=== PATIENT | female | born 1940 | race Caucasian/White ===

== ENCOUNTER 2020-08-02 13:42 | Outpatient (CLI) | payer MEDICARE, SELFPAY ==
--- NOTE | ~2020-08-02 | DEXA_ITS ---
Bone Density Report Name: Precious Navarrete Age: 79 Sex: Female Ethnicity: White Date of : 1940 Indication: osteopenia; Referring Provider: Hussein Barnes Study: Bone densitometry was performed. Exam Date: August 02, 2020 Accession number: [id number] Bone Density: Region BMD T-score Z-score Classification AP Spine (L1-L4) 0.859 -1.7 1.0 Osteopenia Femoral Neck (Left) 0.633 -1.9 0.3 Osteopenia Total Hip (Left) 0.745 -1.6 0.4 Osteopenia Total Hip Bilateral Avg 0.764 -1.5 0.6 Osteopenia Femoral Neck (Right) 0.657 -1.7 0.6 Osteopenia Total Hip (Right) 0.782 -1.3 0.7 Osteopenia World Health Organization criteria for BMD impression classify patients as: Normal (T-score at or above -1.0), Osteopenia (T-score between -1.0 and -2.5), or Osteoporosis (T-score at or below -2.5). 10-year Fracture Risk(1): Major Osteoporotic Fracture 16% Hip Fracture 4.4% Reported Risk Factors: [place] (), Neck BMD=0.633, BMI=25.5 (1) FRAX(R) Version 3.08. Fracture probability calculated for an untreated patient. Fracture probability may be lower if the patient has received treatment. Previous Exams: Region Exam Age BMD T-score BMD Change BMD Change Date g/cm2 vs Baseline vs Previous AP Spine(L1-L4) 08/02/2020 79 0.859 -1.7 -0.065(-7.0%)# -0.011(-1.3%)# 09/11/2013 72 0.870 -1.6 -0.054(-5.8%)# -0.030(-3.4%)# 10/05/2010 69 0.901 -1.3 -0.023(-2.5%)* -0.010(-1.1%) 09/28/2008 67 0.911 -1.2 -0.013(-1.5%) -0.013(-1.5%) 06/07/2004 63 0.924 -1.1 Total Hip(Left) 08/02/2020 79 0.745 -1.6 -0.076(-9.2%)# -0.124(-14.3%) 09/11/2013 72 0.869 -0.6 0.048(5.9%)# 0.037(4.4%)# 10/05/2010 69 0.832 -0.9 0.011(1.4%) 0.012(1.5%) 09/28/2008 67 0.820 -1.0 -0.001(-0.1%) -0.001(-0.1%) 06/07/2004 63 0.821 -1.0 Total Hip(Right) 08/02/2020 79 0.782 -1.3 -0.031(-3.8%)# -0.097(-11.0%) 09/11/2013 72 0.879 -0.5 0.065(8.0%)# 0.049(5.9%)# 10/05/2010 69 0.830 -0.9 0.016(2.0%) -0.001(-0.1%) 09/28/2008 67 0.831 -0.9 0.017(2.1%) 0.017(2.1%) 06/07/2004 63 0.813 -1.1 *Denotes significance at 95% confidence level, LSC for AP Spine = 0.022 g/cm2, LSC for Total Hip = 0.027 g/cm2 Impression: The patient has low bone mass, based on the Left Femoral Neck T-score. The patient has an estimated ten-year risk of hip fracture of 4.4% and an estimated ten-year risk of major fracture of 16%, based on the WHO FRAX algorithm. No significant bone loss was observed. Discussion: BONE DENSITY IS LOW AT O
== END 2020-08-02 13:43 | disposition home or self-care (01) ==
LOC: ANHIMG 13:45
PROVIDERS: PCP Family Medicine; Visit Provider Family Medicine
DX: Z78.0 Asymptomatic menopausal state (principal); M85.88 Other specified disorders of bone density and structure, other site; M85.852 Other specified disorders of bone density and structure, left thigh; M85.851 Other specified disorders of bone density and structure, right thigh
CPT/HCPCS: 77080

== ENCOUNTER 2020-09-03 09:28 | Outpatient (CLI) | payer MEDICARE, SELFPAY ==
--- NOTE | ~2020-09-03 | MM_ITS ---
EXAMINATION: MM screening [facility] BI w win HISTORY: Screening mammogram, family history of breast cancer in her daughter. TECHNIQUE: Craniocaudal and mediolateral oblique 3-D tomosynthesis images were obtained and synthetic 2-D images were generated. CAD analysis was submitted and interpreted. COMPARISON: 08/12/2019, 08/09/2018, 08/03/2017 BREAST PARENCHYMAL COMPOSITION: The breasts are heterogeneously dense, which may obscure small masses . FINDINGS: There is no evidence of suspicious mass, calcification, or architectural distortion to sugg est malignancy in either breast. There has been no suspicious interval change. IMPRESSION: 1. No mammographic evidence of malignancy. 2. Recommend routine screening mammography in one year. BI-RADS Category 1: Negative Reviewed, dictated and finalized at location A. [place] WORKER
== END 2020-09-03 09:29 | disposition home or self-care (01) ==
LOC: ANHIMG 09:31
PROVIDERS: PCP Family Medicine; Visit Provider Family Medicine
DX: Z12.31 Encounter for screening mammogram for malignant neoplasm of breast (principal)
CPT/HCPCS: 77063; 77067

== ENCOUNTER → 2021-05-27 02:58 | Outpatient (CLI) | payer MEDICARE, SELFPAY ==
[2021-05-27 18:35] LABS: SARS-CoV-2 RNA PCR Positive
== END ==
PROVIDERS: PCP Family Medicine; Visit Provider Family Medicine
DX: U07.1 COVID-19 (principal)
CPT/HCPCS: C9803; U0003; U0005

== ENCOUNTER 2021-11-01 10:13 | Outpatient (CLI) | payer MEDICARE, SELFPAY ==
--- NOTE | ~2021-11-01 | MM_ITS ---
EXAMINATION: MM screening [facility] BI w win HISTORY: Screening TECHNIQUE: Craniocaudal and mediolateral oblique 3-D tomosynthesis images were obtained and synthetic 2-D images were generated. CAD analysis was submitted and interpreted. COMPARISON: Comparison to multiple prior studies sequentially, with oldest reviewed study dated 06/27. BREAST PARENCHYMAL COMPOSITION: The breasts are heterogenously dense, which may obscure small masses FINDINGS: There is no evidence of suspicious mass, calcification, or architectural distortion to sugg est malignancy in either breast. There has been no suspicious interval change. IMPRESSION: 1. No mammographic evidence of malignancy. 2. Recommend routine screening mammography in one year. BI-RADS Category 1: Negative Reviewed, dictated and finalized at location A. 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
== END 2021-11-01 10:14 | disposition home or self-care (01) ==
LOC: ANHIMG 10:14
PROVIDERS: PCP Family Medicine; Visit Provider Family Medicine
DX: Z12.31 Encounter for screening mammogram for malignant neoplasm of breast (principal)
CPT/HCPCS: 77063; 77067

== ENCOUNTER 2021-12-20 00:37 | Day surgery (SDC) | payer MEDICARE, SELFPAY ==
[2021-12-02 15:03] VITALS: BMI 24.7
[2021-12-20 07:42] VITALS: BP 151/67; PULSE 73; RESP 16; TEMP 35.8; O2SAT 100; BMI 25.0
[2021-12-20] MEDS: LACTATED RINGERS 1,000 ML 150 ML IV CONT (07:55)
--- NOTE | 2021-12-20 08:25 | WPDGICN ---
Assessment and Plan Assessment and plan (1) History of colon polyps: Code(s): Z86.010 - Personal history of colonic polyps Status: Acute Assessment and Plan: Patient has a history of recurrent colon polyps. Most recent colonoscopy was 5 years ago. Patient presents today for or screening follow-up colonoscopy. GI Consult Note Consult date/time: 12/20/21 08:25 HPI: Precious Navarrete is a 81 year old female Presents for screening colonoscopy. Patient has a history of colon polyps in the past. She presents today for screening colonoscopy. Current weight appetite bowel movements are normal. She denies abdominal pain. She has had no bleeding. Patient has a history of recurrent C diff infection in the fall of 2020. Has been 3 or 4 months since last diarrhea episode. She denies any bleeding or abdominal pain. Family history is noncontributory. Review of Systems Review of Systems: All systems reviewed & are unremarkable except as noted in HPI and below PMFSH Past Medical History Medical History Chronic low back pain without sciatica Dyslipidemia Hyperlipidemia Prediabetes Seasonal allergies Surgical History Surgical History H/O removal of cyst 2007 - left breast H/O: hysterectomy 1988 History of lumpectomy of left breast 1961 History of tonsillectomy Family History Family History Daughter Breast cancer Sibling Malignant neoplasm of prostate Mother Afib Social History Social History Smoking status: Former smoker Tobacco type: cigarettes Additional smoking assessment comments: social smoker 40 years ago Alcohol intake: current Alcohol use details: occasional glass of wine Substance use: never Substance use type: does not use Living arrangements: with family Additional living arrangements comments: Gender identity (if verbalized by the patient): Female Sexual Orientation (if Verbalized by the Patient): Straight or Heterosexual Spiritual care concerns: No Meds Home Medications and Allergies Home Medications Medication Instructions Recorded Confirmed Type fluticasone propionate 50 2 spray INTRANASAL DAILY 06/21/20 12/02/21 History mcg/actuation nasal spray,suspension simvastatin 20 mg tablet 20 mg PO QHS #90 tablet 05/25/21 12/02/21 Rx calcium carbonate 600 mg-vitamin 1 cap PO DAILY cap 06/23/21 12/02/21 History D3 12.5 mcg (500 unit) capsule Allergies Allergy/AdvReac Type Severity Reaction Status Date / Time Penicillins Allergy Unknown Unknown Verified 12/20/21 07:42 Vital Signs Vital Signs - 24 hr 12/20/21 07:42 Temperature 96.4 F L Pulse Rate 73 Respiratory Rate 16 Blood Pressure 151/67 H Pulse Oximetry 100 Exam Narrative: Physical exam reveals patient to be alert. Vital signs stable. HEENT exam is unremarkable. Patient is anicteric. Lungs are clear to auscultation and percussion. Heart is without murmur or extra sounds. Abdominal exam bowel sounds are present soft nontender with no organomegaly. Digital external rectal exam is normal.
--- NOTE | 2021-12-20 08:27 | WPDANESEPPF ---
Anes - Initial Pre Proc Eval Procedure: Operation Date: 12/20/21 09:00 Proposed Procedures p Screening Colonoscopy - Twan Martínez MD Date/Time: 12/20/21 08:27 Surgeon: Twan Martínez MD Pre Op Diagnosis: hx of colon polyps Patient Data Age: 81 Gender: F Height: 1.57 m Weight: 62.1 kg Last Vital Signs Temp 96.4 F L 12/20/21 07:42 Pulse 73 12/20/21 07:42 Resp 16 12/20/21 07:42 BP 151/67 H 12/20/21 07:42 Pulse Ox 100 12/20/21 07:42 Allergies Allergy/AdvReac Type Severity Reaction Status Date / Time Penicillins Allergy Unknown Unknown Verified 12/20/21 07:42 Home Medications Medication Instructions Recorded Confirmed Type fluticasone propionate 50 2 spray INTRANASAL DAILY 06/21/20 12/02/21 History mcg/actuation nasal spray,suspension simvastatin 20 mg tablet 20 mg PO QHS #90 tablet 05/25/21 12/02/21 Rx calcium carbonate 600 mg-vitamin 1 cap PO DAILY cap 06/23/21 12/02/21 History D3 12.5 mcg (500 unit) capsule Patient hx anesthesia problems: none Family hx anesthesia problems: none Results Review: All pre-operative results and documents have been reviewed as part of the pre-operative evaluation. [facility] Past Medical History Medical History Chronic low back pain without sciatica Dyslipidemia Hyperlipidemia Prediabetes Seasonal allergies Surgical History Surgical History H/O removal of cyst 2007 - left breast H/O: hysterectomy 1988 History of lumpectomy of left breast 1961 History of tonsillectomy Family History Family History Daughter Breast cancer Sibling Malignant neoplasm of prostate Mother Afib Social History Social History Smoking status: Former smoker Tobacco type: cigarettes Additional smoking assessment comments: social smoker 40 years ago Alcohol intake: current Alcohol use details: occasional glass of wine Substance use: never Substance use type: does not use Living arrangements: with family Additional living arrangements comments: Gender identity (if verbalized by the patient): Female Sexual Orientation (if Verbalized by the Patient): Straight or Heterosexual Spiritual care concerns: No Anes - Eval Final PreProcedure Day of Procedure 12/20/21 08:27 Patient weight: normal Heart: regular rate and rhythm Lungs: clear to auscultation Airway: Mallampati scale class II Neurological: alert and oriented Last oral intake: >/= 8 hours ASA classification: II Emergent: no Anesthetic plan: proceed Anesthesia type and monitoring: general GIVS and standard monitoring Results Review: All pre-operative results and documents have been reviewed as part of the pre-operative evaluation. Informed Consent: The patient's anesthetic plan and its attendant risks and benefits were discussed with the patient/family/POA. Questions were solicited and answers provided to the satisfaction of the patient/family/POA.
[2021-12-20 09:30] VITALS: BP 108/51; PULSE 72; RESP 20; O2SAT 96
[2021-12-20 09:40] VITALS: BP 136/75; PULSE 63; RESP 21; O2SAT 100
[2021-12-20 09:50] VITALS: BP 141/75; PULSE 69; RESP 19; O2SAT 98
== END 2021-12-20 10:03 | disposition home or self-care (01) ==
PROVIDERS: PCP Family Medicine; Visit Provider Internal Medicine Gastroenterology
PROC: 0DJD8ZZ Inspection of Lower Intestinal Tract, Via Natural or Artificial Opening Endoscopic (ICD-10-PCS; CPT 45378; principal; 2021-12-20 09:00)
DX: Z12.11 Encounter for screening for malignant neoplasm of colon (principal); D12.2 Benign neoplasm of ascending colon; D12.5 Benign neoplasm of sigmoid colon; K63.5 Polyp of colon; K64.8 Other hemorrhoids; E78.5 Hyperlipidemia, unspecified; R73.03 Prediabetes; Z87.891 Personal history of nicotine dependence
CPT/HCPCS: 45380; 88305; J2704; J7120

== ENCOUNTER → 2022-05-09 14:46 | Outpatient (CLI) | payer MEDICARE, SELFPAY ==
--- NOTE | ~2022-05-09 | XR_ITS ---
EXAM: XR knee LT 2V DATE: 05/09/2022 15:01 HISTORY: M25.562 - Pain in left knee . COMPARISON: None available. FINDINGS: Decreased mineralization. No fracture or dislocation. No lytic or blastic lesion. Quadrice ps enthesopathy. Severe medial joint space narrowing. Mild tricompartmental osteophytosis. No erosion or periosteal change. Soft tissues within normal limits. IMPRESSION: Tricompartmental left knee osteoarthritis, severe in the medial compartment. Reviewed, dictated and finalized at location K. IMPRESSION: Tricompartmental left knee osteoarthritis, severe in the medial com partment.
== END ==
PROVIDERS: PCP Nurse Practitioner Family; Visit Provider Nurse Practitioner Family
DX: M17.12 Unilateral primary osteoarthritis, left knee (principal)
CPT/HCPCS: 73560

== ENCOUNTER 2022-11-13 09:13 | Outpatient (CLI) | payer MEDICARE, SELFPAY ==
--- NOTE | ~2022-11-13 | MM_ITS ---
EXAMINATION: MM screening [facility] BI w win HISTORY: Screening TECHNIQUE: Craniocaudal and mediolateral oblique 3-D tomosynthesis images were obtained and synthetic 2-D images were generated. CAD analysis was submitted and interpreted. COMPARISON: Comparison to multiple prior studies sequentially, with oldest reviewed study dated 01/2016. BREAST PARENCHYMAL COMPOSITION: There are scattered areas of fibroglandular density. FINDINGS: There is no evidence of suspicious mass, calcification, or architectural distortion to sugg est malignancy in either breast. There has been no suspicious interval change. IMPRESSION: 1. No mammographic evidence of malignancy. 2. Recommend routine screening mammography in one year. BI-RADS Category 1: Negative Reviewed, dictated and finalized at location A.
== END 2022-11-13 09:14 | disposition home or self-care (01) ==
LOC: ANHIMG 09:14
PROVIDERS: PCP Family Medicine; Visit Provider Family Medicine
DX: Z12.31 Encounter for screening mammogram for malignant neoplasm of breast (principal)
CPT/HCPCS: 77063; 77067

== ENCOUNTER 2022-12-26 11:15 | Outpatient (CLI) | payer MEDICARE, SELFPAY ==
[2022-12-26 19:36] LABS: Alanine Aminotransferase 24 U/L (6-35); Albumin Level 4.5 g/dL (3.5-5.1); Alkaline Phosphatase 59 U/L (38-126); Anion Gap 2 mmol/L (8-16); Aspartate Amino Transferase 36 U/L (14-36); Bilirubin,Total 0.5 mg/dL (0.2-1.3); Blood Urea Nitrogen 14 mg/dL (7-17); Calcium 9.7 mg/dL (8.4-10.2); Carbon Dioxide 33 mmol/L (22-30); Chloride 103 mmol/L (98-107); Estimated Glomerular Filt Rate > 60; Glucose 100 mg/dL (65-110); Potassium 5.5 mmol/L (3.4-5.0); Sodium 138 mmol/L (137-145)
[2022-12-26 20:09] LABS: Hemoglobin A1C 6.3 % (<5.7)
== END 2022-12-26 11:16 | disposition home or self-care (01) ==
LOC: ANHGOSHLAB 11:16
PROVIDERS: PCP Family Medicine; Visit Provider Family Medicine
DX: R73.03 Prediabetes (principal); E78.5 Hyperlipidemia, unspecified; Z79.899 Other long term (current) drug therapy
CPT/HCPCS: 36415; 80053; 83036

== ENCOUNTER 2023-01-11 09:21 | Outpatient (CLI) | payer MEDICARE, SELFPAY ==
[2023-01-11 19:17] LABS: Anion Gap 6 mmol/L (8-16); Blood Urea Nitrogen 16 mg/dL (7-17); Calcium 9.1 mg/dL (8.4-10.2); Carbon Dioxide 32 mmol/L (22-30); Chloride 103 mmol/L (98-107); Estimated Glomerular Filt Rate > 60; Glucose 91 mg/dL (65-110); Potassium 4.9 mmol/L (3.4-5.0); Sodium 141 mmol/L (137-145)
== END 2023-01-11 09:22 | disposition home or self-care (01) ==
LOC: ANHGOSHLAB 09:21
PROVIDERS: PCP Family Medicine; Visit Provider Family Medicine
DX: E87.5 Hyperkalemia (principal)
CPT/HCPCS: 36415; 80048

== ENCOUNTER 2023-06-28 10:16 | Outpatient (CLI) | payer MEDICARE, SELFPAY ==
[2023-06-28 12:42] LABS: Basophils Absolute Auto 0.1 K/mm3 (0.0-0.1); Eosinophils Absolute Auto 0.1 K/mm3 (0-0.3); Eosinophils Percent Auto 1.6 % (0-4.4); Hematocrit 43.9 % (37.0-47.0); Hemoglobin 13.9 g/dL (12.0-15.0); Immature Granulocyte Absolute 0.01 K/mm3 (0.00-0.031); Immature Granulocyte Percent A 0.1 % (0-0.5); Lymphocytes Absolute Auto 2.21 K/mm3 (0.9-3.2); Lymphocytes Percent Auto 32.5 % (18.3-44.2); Mean Corpuscular HGB Conc 31.7 g/dl (32-36); Mean Corpuscular Hemoglobin 29.6 pg (26-34); Mean Corpuscular Volume 93.4 fl (80-100); Mean Platelet Volume 10.6 fl (7.4-10.4); Monocytes Absolute Auto 0.4 K/mm3 (0.1-0.6); Monocytes Percent Auto 6.2 % (2.6-8.5); Neutrophils Percent Auto 58.6 % (45.5-73.1); Platelet Count Result 245 k/mm3 (150-375); Red Cell Distribution Width 12.7 % (11.5-14.5); White Blood Count 6.8 K/mm3 (4.5-10.0)
[2023-06-28 13:36] LABS: Alanine Aminotransferase 21 U/L (6-35); Albumin Level 4.6 g/dL (3.5-5.1); Alkaline Phosphatase 61 U/L (38-126); Anion Gap 5 mmol/L (8-16); Aspartate Amino Transferase 45 U/L (14-36); Bilirubin,Total 0.7 mg/dL (0.2-1.3); Blood Urea Nitrogen 19 mg/dL (7-17); Calcium 9.5 mg/dL (8.4-10.2); Carbon Dioxide 32 mmol/L (22-30); Chloride 102 mmol/L (98-107); Cholesterol 201 mg/dL (0-200); Estimated Glomerular Filt Rate > 60; Glucose 116 mg/dL (65-110); HDL Direct 59 mg/dL; Potassium 5.1 mmol/L (3.4-5.0); Sodium 139 mmol/L (137-145); Triglycerides 178 mg/dL (<150)
[2023-06-28 13:47] LABS: LDL Cholesterol Direct 99 mg/dL
[2023-06-28 19:32] LABS: Vitamin D 25 Hydroxy 45.1 ng/mL
== END 2023-06-28 10:17 | disposition home or self-care (01) ==
LOC: ANHGOSHLAB 10:17
PROVIDERS: PCP Family Medicine; Visit Provider Family Medicine
DX: E78.5 Hyperlipidemia, unspecified (principal); R73.03 Prediabetes; Z79.899 Other long term (current) drug therapy; Z00.00 Encounter for general adult medical examination without abnormal findings; E53.8 Deficiency of other specified B group vitamins; E55.9 Vitamin D deficiency, unspecified; Z13.29 Encounter for screening for other suspected endocrine disorder
CPT/HCPCS: 36415; 80053; 80061; 82306; 82607; 83036; 84443; 85025

== ENCOUNTER 2023-08-16 08:50 | Outpatient (CLI) | payer MEDICARE, SELFPAY ==
--- NOTE | ~2023-08-16 | DEXA_ITS ---
Bone Density Report Name: MICHELLE MONTANO Age: 82 Sex: Female Ethnicity: White Date of : 1940 Indication: osteopenia; monitoring treatment; height loss; hysterectomy; Referring Provider: DONOVAN WOOD Study: Bone densitometry was performed. Exam Date: August 16, 2023 Accession number: [id number] Bone Density: Region BMD T-score Z-score Classification AP Spine(L1-L4) 0.833 -1.9 0.8 Osteopenia Femoral Neck (Left) 0.628 -2.0 0.4 Osteopenia Total Hip (Left) 0.761 -1.5 0.7 Osteopenia Femoral Neck (Right) 0.627 -2.0 0.4 Osteopenia Total Hip (Right) 0.764 -1.5 0.8 Osteopenia Total Hip Mean 0.763 -1.5 0.8 Osteopenia World Health Organization criteria for BMD impression classify patients as: Normal (T-score at or above -1.0), Osteopenia (T-score between -1.0 and -2.5), or Osteoporosis (T-score at or below -2.5). 10-year Fracture Risk: FRAX not reported because: Treated for osteoporosis Previous Exams: Region Exam Age BMD T-score BMD Change BMD Change Date g/cm2 vs Baseline vs Previous AP Spine (L1-L4) 08/16/2023 82 0.833 -1.9 -0.027 (-3.1%) -0.027 (-3.1%) 08/02/2020 79 0.859 -1.7 Total Hip(Left) 08/16/2023 82 0.761 -1.5 0.016 (2.1%) 0.016 (2.1%) 08/02/2020 79 0.745 -1.6 Total Hip(Right) 08/16/2023 82 0.764 -1.5 -0.018 (-2.3%) -0.018 (-2.3%) 08/02/2020 79 0.782 -1.3 *Denotes significance at 95% confidence level, LSC for AP Spine = 0.022 g/cm2, LSC for Total Hip = 0.027 g/cm2 Clinical Information Provided by Patient: Is being treated for osteoporosis Has used the following medications: Vitamin D, Calcium Has the following medical conditions: Hysterectomy Patient maximum height was 63 Menopause Age: 48 Does not regularly consume dairy products Drinks caffeinated beverages Onset of menses at age 11 Number of children 2 Impression: The patient has low bone mass, based on the Left Femoral Neck T-score. The BMD for the AP Spine (L1-L4) decreased, changing by -3.1% since the last DXA exam. Discussion: SIGNIFICANT BONE LOSS OBSERVED. Adherence to therapy (including calcium and vitamin D intake) should be assessed. If compliance is not a factor, review management and exclusion of secondary causes of bone loss. It is important to ask patients whether they are taking their medications and to encourage continued and appropriate compliance with their osteoporosis therapies to reduce fracture risk. It is also impor
== END 2023-08-16 08:51 | disposition home or self-care (01) ==
PROVIDERS: PCP Family Medicine; Visit Provider Family Medicine
DX: Z78.0 Asymptomatic menopausal state (principal); M85.88 Other specified disorders of bone density and structure, other site; M85.852 Other specified disorders of bone density and structure, left thigh; M85.851 Other specified disorders of bone density and structure, right thigh
CPT/HCPCS: 77080

== ENCOUNTER 2023-11-23 09:59 | Outpatient (CLI) | payer MEDICARE, SELFPAY ==
--- NOTE | ~2023-11-23 | MM_ITS ---
EXAMINATION: MM screening [facility] BI w win HISTORY: Screening mammogram TECHNIQUE: Craniocaudal and mediolateral oblique 3-D tomosynthesis images were obtained and synthetic 2-D images were generated. CAD analysis was submitted and interpreted. COMPARISON: 11/13/2022, 11/01/2021 bilateral screening mammogram examinations BREAST PARENCHYMAL COMPOSITION: There are scattered areas of fibroglandular density. FINDINGS: Biopsy marker on the left; history of prior bilateral benign breast biopsies. There is no e vidence of suspicious mass, calcification, or architectural distortion to suggest malignancy in eithe r breast. There has been no suspicious interval change. IMPRESSION: 1. No mammographic evidence of malignancy. 2. Recommend routine screening mammography in one year. BI-RADS Category 1: Negative Reviewed, dictated and finalized at location A.
== END 2023-11-23 10:00 | disposition home or self-care (01) ==
LOC: ANHIMG 10:02
PROVIDERS: PCP Family Medicine; Visit Provider Family Medicine
DX: Z12.31 Encounter for screening mammogram for malignant neoplasm of breast (principal)
CPT/HCPCS: 77063; 77067

== ENCOUNTER 2024-01-01 08:47 | Outpatient (CLI) | payer MEDICARE, SELFPAY ==
[2024-01-01 14:00] LABS: Basophils Absolute Auto 0.1 K/mm3 (0.0-0.1); Basophils Percent Auto 1.1 % (0.2-1.2); Eosinophils Absolute Auto 0.1 K/mm3 (0-0.3); Eosinophils Percent Auto 1.6 % (0-4.4); Hematocrit 44.6 % (37.0-47.0); Hemoglobin 13.8 g/dL (12.0-15.0); Immature Granulocyte Absolute 0.01 K/mm3 (0.00-0.031); Immature Granulocyte Percent A 0.2 % (0-0.5); Lymphocytes Absolute Auto 1.98 K/mm3 (0.9-3.2); Lymphocytes Percent Auto 30.7 % (18.3-44.2); Mean Corpuscular HGB Conc 30.9 g/dl (32-36); Mean Corpuscular Hemoglobin 28.6 pg (26-34); Mean Corpuscular Volume 92.5 fl (80-100); Mean Platelet Volume 10.9 fl (7.4-10.4); Monocytes Absolute Auto 0.5 K/mm3 (0.1-0.6); Monocytes Percent Auto 7.9 % (2.6-8.5); Neutrophils Absolute Auto 3.8 K/mm3 (1.3-6.7); Neutrophils Percent Auto 58.5 % (45.5-73.1); Platelet Count Result 252 k/mm3 (150-375); Red Blood Count 4.82 M/mm3 (4.2-5.4); Red Cell Distribution Width 13.8 % (11.5-14.5); White Blood Count 6.5 K/mm3 (4.5-10.0)
[2024-01-01 14:12] LABS: Alanine Aminotransferase 21 U/L (6-35); Albumin Level 4.5 g/dL (3.5-5.1); Alkaline Phosphatase 59 U/L (38-126); Anion Gap 5 mmol/L (4-12); Aspartate Amino Transferase 37 U/L (14-36); Bilirubin,Total 0.6 mg/dL (0.2-1.3); Blood Urea Nitrogen 16 mg/dL (7-17); Calcium 9.3 mg/dL (8.4-10.2); Carbon Dioxide 30 mmol/L (22-30); Chloride 105 mmol/L (98-107); Cholesterol 168 mg/dL (0-200); Estimated Glomerular Filt Rate > 60; Glucose 103 mg/dL (65-110); HDL Direct 51 mg/dL; Potassium 4.4 mmol/L (3.4-5.0); Sodium 140 mmol/L (137-145); Triglycerides 161 mg/dL (<150)
[2024-01-01 14:23] LABS: LDL Cholesterol Direct 99 mg/dL
[2024-01-01 16:01] LABS: Hemoglobin A1C 6.1 % (<5.7)
== END 2024-01-01 08:48 | disposition home or self-care (01) ==
LOC: ANHGOSHLAB 08:48
PROVIDERS: PCP Family Medicine; Visit Provider Nurse Practitioner Family
DX: E78.5 Hyperlipidemia, unspecified (principal); E87.5 Hyperkalemia; M19.90 Unspecified osteoarthritis, unspecified site; M85.80 Other specified disorders of bone density and structure, unspecified site; R73.03 Prediabetes; E04.1 Nontoxic single thyroid nodule
CPT/HCPCS: 36415; 80053; 80061; 83036; 84443; 85025

== ENCOUNTER 2024-02-27 13:25 | Emergency (ER) | payer MEDICARE, SELFPAY ==
--- NOTE | 2024-02-27 13:32 | ED.DIZZY ---
HPI - Dizziness General Chief Complaint: Dizziness Stated Complaint: Dizziness Time Seen by Provider: 02/27/24 13:35 Source: patient Mode of arrival: ambulatory Limitations: no limitations History of Present Illness HPI Narrative: Precious is an 83-year-old female patient presenting to the clinic today with complaints of dizziness for the past 4-5 days. She reports that she feels off balance and as though the room is spinning. States she feels as though her head is congested. Has been taking Flonase and [id number] antihistamines without relief. She denies any chest pain, shortness of breath, visual changes, or headache. She denies any cough or nasal congestion. States she does have a little bit of a scratchy throat. Related Data Home Medications Medication Instructions Recorded Confirmed calcium carbonate 600 mg-vitamin 1 cap PO DAILY 06/23/21 02/27/24 D3 12.5 mcg (500 unit) capsule (Calcium 600 with Vitamin D3) cholecalciferol (vitamin D3) 25 25 mcg PO DAILY 05/09/22 02/27/24 mcg (1,000 unit) tablet meloxicam 15 mg tablet 15 mg PO DIRECTED 06/28/23 02/27/24 Allergies Allergy/AdvReac Type Severity Reaction Status Date / Time Penicillins Allergy Unknown Unknown Verified 02/27/24 13:39 clindamycin AdvReac Severe c. diff Verified 02/27/24 13:39 Review of Systems Review of Systems: Pertinent positives per HPI. Patient denies any fever, chills, rash, headache, visual changes, cough, runny nose, shortness of breath, chest pain, palpitations, nausea, vomiting, diarrhea, constipation, abdominal pain, or any urinary issues. [facility] Past Medical History Medical History Chronic low back pain without sciatica Degenerative joint disease of knee Dyslipidemia History of colon polyps Left medial knee pain Lip lesion Osteopenia Prediabetes Recurrent Clostridioides difficile infection (~2020) Seasonal allergies Sinusitis, acute Surgical History Surgical History H/O removal of cyst (~2007) 2007 - left breast H/O: hysterectomy (~1988) 1988 History of lumpectomy of left breast (~1961) 1961 History of tonsillectomy (~1962) Family History Family History Daughter Breast cancer Sibling Malignant neoplasm of prostate Mother Afib Other Arthritis Social History Social History Smoking status: Former smoker (< 20 pack years) Tobacco type: cigarettes Additional smoking assessment comments: social smoker 40 years ago Alcohol intake: current Alcohol use details: occasional glass of wine Substance use: never Substance use type: does not use Lack of Transportation: No Lack of Food: Never True Current Housing: I Have Housing Concerned About Future Housing: No Difficulty Paying Gas/Electric Bills: No Difficulty Paying for Meds: No Currently Unemployed: No Education: High School Diploma/GED Difficulty w/ Childcare or Family Care: No Living arrangements: with family Additional living arrangements comments: Occupation/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der identity (if verbalized by the patient): Female Sexual Orientation (if Verbalized by the Patient): Straight or Heterosexual Spiritual care concerns: No Agree to blood products: Yes Comments At the time of my signature, I reviewed and agree with the nursing past medical, surgical, social, and family history. There is no relevant family history pertinent to the patient complaint. Exam Narrative: General: Well-developed, well nourished, in no apparent distress Head: Normocephalic, atraumatic Eyes: Pupils equally round and reactive to light bilaterally, EOM intact, sclera and conjunctive clear, no discharge, lids normal Ears: TMs intact and clear, mild congestion behind TMs, scant amount of cerumen in
[2024-02-27 13:38] VITALS: BP 160/99; PULSE 76; RESP 16; TEMP 36.6; O2SAT 100
--- NOTE | 2024-02-27 13:40 | ECG_ITS ---
Test Date: 2024-02-27 14:03:30 Measurements Intervals Joseph Rate: 70 P: 54 CA: 162 QRS: -54 QRSD: 91 T: 37 QT: 397 QTc: 430 Interpretive Statements SINUS RHYTHM POSSIBLE LEFT ATRIAL ENLARGEMENT INCOMPLETE RIGHT BUNDLE BRANCH BLOCK LEFT ANTERIOR FASCICULAR BLOCK POSSIBLE LEFT VENTRICULAR HYPERTROPHY ABNORMAL ECG No previous ECG available for comparison Electronically Signed On 02-27-2024 15:01:19 CDT by Farhan Chandler D.O.
[2024-02-27 13:41] VITALS: BP 160/99; PULSE 76; RESP 16; TEMP 36.6; O2SAT 100
[2024-02-27 13:56] LABS: Glucose Point of Care 87 mg/dl (65-105)
[2024-02-27 14:00] LABS: EDUAAPPEAR Cloudy; EDUABILI Negative; EDUABLOOD 2+; EDUACOLOR1 Yellow; EDUAGLUCOSE Negative; EDUAKETONE Negative; EDUALEUKO Negative; EDUANITRATE Negative; EDUAPROTEIN Negative; EDUASPGRAVITY 1.015; EDUAUROBILI 0.2
[2024-02-27 14:06] VITALS: BP 166/78; PULSE 87
[2024-02-27 14:07] VITALS: BP 147/83; BP 151/91; PULSE 76; PULSE 83
[2024-02-27 14:09] LABS: EDINFLUASCREEN Negative; EDINFLUBSCREEN Negative
== END 2024-02-27 14:21 | disposition home or self-care (01) ==
PROVIDERS: Emergency Provider Nurse Practitioner Family; PCP Family Medicine
DX: R42 Dizziness and giddiness (principal); H61.21 Impacted cerumen, right ear; R73.03 Prediabetes; E78.5 Hyperlipidemia, unspecified; M85.80 Other specified disorders of bone density and structure, unspecified site; Z87.891 Personal history of nicotine dependence
CPT/HCPCS: 69210; 81003; 82948; 87086; 87426; 87804; 93005; 99213; G0463

== ENCOUNTER 2024-05-12 11:45 | Emergency (ER) | payer MEDICARE, SELFPAY ==
--- NOTE | ~2024-05-12 | XR_ITS ---
EXAMINATION: XR wrist LT min 3V DATE: 05/12/2024 12:15 INDICATION: Left wrist pain and swelling. TECHNIQUE: 3 views of left wrist were obtained. COMPARISON: None. FINDINGS: There is a comminuted fracture of distal radius with involvement of the distal articular cardenas rface. The main distal fracture fragment demonstrates impaction and dorsal angulation. There is 3 deg james dorsal tilt of the distal articular surface. There is a comminuted fracture of the ulnar styloid . There is severe osteoarthritis of radioscaphoid joint, moderate osteoarthritis of triscaphe joint, and severe osteoarthritis of first carpometacarpal joint and first interphalangeal joint. IMPRESSION: 1. Comminuted fracture of distal radius. 2. Comminuted fracture of the ulnar styloid. 3. Polyarticular osteoarthritis. Reviewed, dictated and finalized at location A.
[2024-05-12 12:02] VITALS: PULSE 77; RESP 16; TEMP 36.4; O2SAT 100
[2024-05-12 12:03] VITALS: BP 112/87
--- NOTE | 2024-05-12 12:51 | ED.UPPEXIN ---
HPI - Extremity Injury (Upper) General Chief Complaint: Extremity Injury, Upper Stated Complaint: Injured Left Wrist Time Seen by Provider: 05/12/24 12:52 Source: patient, RN notes reviewed and old records reviewed Mode of arrival: ambulatory Limitations: no limitations History of Present Illness HPI narrative: 83-year-old female presents to the [facility] with complaints of left wrist pain patient states that she tripped while golfing. Landing with an outstretched arm. Tenderness to the left wrist area. Positive radial pulse. Sensation intact in all 5 fingers. 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 Able to move all 5 fingers Capillary refill under 2 seconds Related Data Home Medications Medication Instructions Recorded Confirmed calcium carbonate 600 mg-vitamin 1 cap PO DAILY 06/23/21 05/12/24 D3 12.5 mcg (500 unit) capsule (Calcium 600 with Vitamin D3) cholecalciferol (vitamin D3) 25 25 mcg PO DAILY 05/09/22 05/12/24 mcg (1,000 unit) tablet Allergies Allergy/AdvReac Type Severity Reaction Status Date / Time Penicillins Allergy Unknown Unknown Verified 05/12/24 12:43 clindamycin AdvReac Severe c. diff Verified 05/12/24 12:43 Review of Systems Review of Systems: All systems reviewed & are unremarkable except as noted in HPI and below Constitutional: Constitutional: Reports no additional constitutional complaints Eyes: Eyes: Reports no additional eye complaints ENT: Reports system reviewed and no additional complaints, except as documented Cardiovascular: Cardiovascular: Reports no additional cardiovascular complaints, Denies chest pain and Denies dyspnea Respiratory: Respiratory: Reports no additional respiratory complaints, Denies chest congestion, Denies cough and Denies dyspnea Gastrointestinal: Gastrointestinal: Reports no additional gastrointestinal complaints, Denies abdominal pain, Denies nausea and Denies vomiting Musculoskeletal: Musculoskeletal: Reports as per HPI Integumentary/Breasts: Skin/Breast: Reports system reviewed and no additional complaints, except as docu Neurologic: Reports system reviewed and no additional complaints, except as documented Psychiatric: Psychiatric: Reports no additional psychiatric complaints Allergic/Immunologic: Allergic/Immunologic: Reports no additional allergic/immunologic complaints [facility] Past Medical History Medical History Chronic low back pain without sciatica Degenerative joint disease of knee Dyslipidemia History of colon polyps Left medial knee pain Lip lesion Osteopenia Prediabetes Recurrent Clostridioides difficile infection (~2020) Seasonal allergies Sinusitis, acute Surgical History Surgical History H/O removal of cyst (~2007) 2007 - left breast H/O: hysterectomy (~1988) 1988 History of lumpectomy of left breast (~1961) 1961 History of tonsillectomy (~1961) Family History Family History Daughter Breast cancer Sibling Malignant neoplasm of prostate Mother Afib Other Arthritis Social History Social History Smoking status: Former smoker (< 20 pack years) Tobacco type: cigarettes Additional smoking assessment comments: social smoker 40 years ago Alcohol intake: current Alcohol use details: occasional glass of wine Substance use: never Substance use type: does not use Lack of Transportation: No Lack of Food: Never True Current Housing: I Have Housing Concerned About Future Housing: No Difficulty Paying Gas/Electric Bills: No Difficulty Paying for Meds: No Currently Unemployed: No Education: High School Diploma/GED Difficulty w/ Childcare or Family Care: No Living arrangements: with family Additional living arrangements comments: Occupation/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
== END 2024-05-12 13:35 | disposition home or self-care (01) ==
PROVIDERS: Emergency Provider Nurse Practitioner; PCP Family Medicine
DX: S52.502A Unspecified fracture of the lower end of left radius, initial encounter for closed fracture (principal); S52.612A Displaced fracture of left ulna styloid process, initial encounter for closed fracture; W01.0XXA Fall on same level from slipping, tripping and stumbling without subsequent striking against object, initial encounter; Y93.53 Activity, golf; E78.5 Hyperlipidemia, unspecified; M85.80 Other specified disorders of bone density and structure, unspecified site; R73.03 Prediabetes
CPT/HCPCS: 29125; 73110; 99214; A4565; G0463

== ENCOUNTER 2024-05-21 09:41 | Outpatient (CLI) | payer MEDICARE, SELFPAY ==
--- NOTE | ~2024-05-21 | XR_ITS ---
XR wrist LT min 3V Ordering provider: Demario Valdviia MD History: . S52.572A - Other intraarticular fracture of lower end of ... . Comparison: May 12, 2024 FINDINGS: BONES: fracture is noted in the distal radius. Cast is noted. Widening of the distance between the sc aphoid and the lunate bone. JOINT SPACES: Narrowing of the radiocarpal joint. Osteoarthritic changes of the first carpometacarpal joint. Narrowing of the scaphotrapezial joint. SOFT TISSUES: Normal. IMPRESSION: fracture in the distal radius with surrounding cast unchanged. Reviewed, dictated and finalized at location A.
== END 2024-05-21 09:42 | disposition home or self-care (01) ==
PROVIDERS: PCP Family Medicine; Visit Provider Orthopaedic Surgery
DX: S52.572A Other intraarticular fracture of lower end of left radius, initial encounter for closed fracture (principal)
CPT/HCPCS: 73110

== ENCOUNTER 2024-06-18 15:05 | Outpatient (CLI) | payer MEDICARE, SELFPAY ==
--- NOTE | ~2024-06-18 | XR_ITS ---
EXAMINATION: XR wrist LT min 3V DATE: 06/18/2024 15:16 INDICATION: One month follow-up post left wrist fracture TECHNIQUE: Posteroanterior, ulnar deviation, oblique, and lateral views of the left wrist were obtain ed. COMPARISON: 05/21/2024 and 05/12/2024 FINDINGS: Again seen is a comminuted intra-articular fracture of the distal left radius which is impacted with mild dorsal angulation resulting 6 degree dorsal tilt of the distal articular. This without significa nt interval change since the initial imaging. There is increasing sclerosis along the fracture plane along with small amount of callus formation at the lateral margin of the fracture consistent with int erval healing. Unchanged minimally distracted comminuted fracture of the ulnar styloid process. No ne w fractures identified. Diffuse osteopenia. Severe osteoarthritis at the radial scaphoid joint and mo derate osteoarthritis of the triscaphe, first carpometacarpal and second fourth and fifth metacarpoph alangeal joints. There appears be ankylosis across the fifth proximal and distal interphalangeal and fourth distal interphalangeal joints with moderate to severe osteoarthritis the remaining interphalan geal joints. IMPRESSION: 1. Healing comminuted intra-articular fracture of the distal left radius which is unchanged in alignm ent since initial imaging. 2. Minimally displaced comminuted fracture of the ulnar styloid process. 3. 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 Reviewed, dictated and finalized at location A. IMPRESSION: 1. Healing comminuted intra-articular fracture of the distal left radius which is unchanged in alignment since initial imaging. 2. Minimally displaced comminuted fracture of the ulnar styloid process. 3. 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
== END 2024-06-18 15:06 | disposition home or self-care (01) ==
LOC: GOSHIMG 15:08
PROVIDERS: PCP Family Medicine; Visit Provider Family Medicine
DX: M19.042 Primary osteoarthritis, left hand (principal); M19.032 Primary osteoarthritis, left wrist; S52.572D Other intraarticular fracture of lower end of left radius, subsequent encounter for closed fracture with routine healing; X58.XXXD Exposure to other specified factors, subsequent encounter
CPT/HCPCS: 73110

== ENCOUNTER 2024-08-18 08:34 | Outpatient (CLI) | payer MEDICARE, SELFPAY ==
[2024-08-18 12:21] LABS: Basophils Absolute Auto 0.1 K/mm3 (0.0-0.1); Basophils Percent Auto 1.1 % (0.2-1.2); Eosinophils Absolute Auto 0.1 K/mm3 (0-0.3); Eosinophils Percent Auto 2.5 % (0-4.4); Hematocrit 42.6 % (37.0-47.0); Hemoglobin 13.9 g/dL (12.0-15.0); Immature Granulocyte Absolute 0.01 K/mm3 (0.00-0.031); Immature Granulocyte Percent A 0.2 % (0-0.5); Lymphocytes Absolute Auto 2.26 K/mm3 (0.9-3.2); Lymphocytes Percent Auto 40.8 % (18.3-44.2); Mean Corpuscular HGB Conc 32.6 g/dl (32-36); Mean Corpuscular Hemoglobin 29.6 pg (26-34); Mean Corpuscular Volume 90.8 fl (80-100); Monocytes Absolute Auto 0.5 K/mm3 (0.1-0.6); Monocytes Percent Auto 8.1 % (2.6-8.5); Neutrophils Absolute Auto 2.6 K/mm3 (1.3-6.7); Neutrophils Percent Auto 47.3 % (45.5-73.1); Platelet Count Result 231 k/mm3 (150-375); Red Blood Count 4.69 M/mm3 (4.2-5.4); Red Cell Distribution Width 13.1 % (11.5-14.5); White Blood Count 5.5 K/mm3 (4.5-10.0)
[2024-08-18 12:56] LABS: Alanine Aminotransferase 22 U/L (6-35); Albumin Level 4.4 g/dL (3.5-5.1); Alkaline Phosphatase 61 U/L (38-126); Anion Gap 3 mmol/L (4-12); Aspartate Amino Transferase 40 U/L (14-36); Bilirubin,Total 0.7 mg/dL (0.2-1.3); Blood Urea Nitrogen 19 mg/dL (7-17); Calcium 9.3 mg/dL (8.4-10.2); Carbon Dioxide 30 mmol/L (22-30); Chloride 105 mmol/L (98-107); Cholesterol 190 mg/dL (0-200); Estimated Glomerular Filt Rate > 60; Glucose 95 mg/dL (65-110); HDL Direct 48 mg/dL; Sodium 138 mmol/L (137-145); Triglycerides 214 mg/dL (<150)
[2024-08-18 13:07] LABS: LDL Cholesterol Direct 89 mg/dL
[2024-08-18 13:58] LABS: Hemoglobin A1C 6.4 % (<5.7)
== END 2024-08-18 08:35 | disposition home or self-care (01) ==
PROVIDERS: PCP Family Medicine; Visit Provider Nurse Practitioner Family
DX: E78.5 Hyperlipidemia, unspecified (principal); R73.03 Prediabetes
CPT/HCPCS: 36415; 80053; 80061; 83036; 85025

== ENCOUNTER 2024-11-24 09:43 | Outpatient (CLI) | payer MEDICARE, SELFPAY ==
--- NOTE | ~2024-11-24 | MM_ITS ---
EXAMINATION: MM screening milady BI w win HISTORY: Screening mammogram, family history of breast cancer in her daughter. TECHNIQUE: Craniocaudal and mediolateral oblique 3-D tomosynthesis images were obtained and synthetic 2-D images were generated. CAD analysis was submitted and interpreted. COMPARISON: 11/23/2023, 11/13/2022, 11/01/2021, 09/03/2020 BREAST PARENCHYMAL COMPOSITION:Not Dense. There are scattered areas of fibroglandular density. FINDINGS: No suspicious mass, calcification, or architectural distortion are identified in either kellie ast to suggest malignancy. There has been no suspicious interval change. IMPRESSION: No mammographic evidence of malignancy. Recommend routine screening mammography in one year. BI-RADS Category 1: Negative Reviewed, dictated and finalized at location .
== END 2024-11-24 09:44 | disposition home or self-care (01) ==
LOC: ANHIMG 09:45
PROVIDERS: PCP Family Medicine; Visit Provider Family Medicine
DX: Z12.31 Encounter for screening mammogram for malignant neoplasm of breast (principal)
CPT/HCPCS: 77063; 77067

== ENCOUNTER 2025-02-10 12:37 | Outpatient (CLI) | payer MEDICARE, SELFPAY ==
[2025-02-10 19:52] LABS: Alanine Aminotransferase 21 U/L (6-35); Albumin Level 4.7 g/dL (3.5-5.1); Alkaline Phosphatase 67 U/L (38-126); Anion Gap 8 mmol/L (4-12); Aspartate Amino Transferase 34 U/L (14-36); Bilirubin,Total 0.6 mg/dL (0.2-1.3); Blood Urea Nitrogen 16 mg/dL (7-17); Calcium 10.3 mg/dL (8.4-10.2); Carbon Dioxide 30 mmol/L (22-30); Chloride 102 mmol/L (98-107); Estimated Glomerular Filt Rate > 60; Glucose 101 mg/dL (65-110); Potassium 4.9 mmol/L (3.4-5.0); Sodium 140 mmol/L (137-145); Total Protein 8.2 g/dL (6.3-8.2)
[2025-02-10 20:55] LABS: Hemoglobin A1C 6.3 % (<5.7)
== END 2025-02-10 12:38 | disposition home or self-care (01) ==
LOC: ANHGOSHLAB 12:38
PROVIDERS: PCP Family Medicine; Visit Provider Family Medicine
DX: R73.03 Prediabetes (principal); I10 Essential (primary) hypertension
CPT/HCPCS: 36415; 80053; 83036

== ENCOUNTER 2025-07-09 01:54 | Day surgery (SDC) | payer MEDICARE, SELFPAY ==
[2025-07-01 10:59] VITALS: BMI 25.0
[2025-07-09 08:39] VITALS: BP 167/75; PULSE 87; RESP 18; TEMP 36.1; O2SAT 100; BMI 25.6
[2025-07-09] MEDS: LACTATED RINGERS 1,000 ML 150 ML IV CONT (08:56)
--- NOTE | 2025-07-09 09:12 | WPDANESEPPF ---
Anes - Initial Pre Proc Eval Procedure: Operation Date: 07/09/25 10:00 Proposed Procedures p Screening Colonoscopy - Martin Polanco MD Date/Time: 07/09/25 09:12 Surgeon: Martin Polanco MD Pre Op Diagnosis: Personal history of colon polyps, unspecified Patient Data Age: 84 Gender: F Height: 1.57 m Weight: 63.5 kg Last Vital Signs Temp 36.1 C L 07/09/25 08:39 Pulse 87 07/09/25 08:39 Resp 18 07/09/25 08:39 BP 167/75 H 07/09/25 08:39 Pulse Ox 100 07/09/25 08:39 O2 Del Method Room Air 07/09/25 08:39 Allergies Allergy/AdvReac Type Severity Reaction Status Date / Time Penicillins Allergy Unknown Unknown Verified 07/09/25 08:38 clindamycin AdvReac Severe c. diff Verified 07/09/25 08:38 Home Medications ?Medication ?Instructions ?Recorded ?Confirmed ?Type meclizine 25 mg tablet 25 mg PO TID PRN dizziness #30 tabs 06/05/24 07/01/25 Rx calcium carbonate 600 mg PO DAILY 08/11/24 07/09/25 History cholecalciferol (vitamin D3) 25 50 mcg PO DAILY 08/11/24 07/09/25 History mcg (1,000 unit) tablet ibuprofen 200 mg tablet 200 mg PO BID PRN fever or pain 02/10/25 07/01/25 History simvastatin 20 mg tablet 20 mg PO QHS #100 tabs 02/25/25 07/09/25 Rx Patient hx anesthesia problems: none Family hx anesthesia problems: none Results Review: All pre-operative results and documents have been reviewed as part of the pre-operative evaluation. [facility] Past Medical History Medical History Distal radius fracture, left (~05/12/24) Osteopenia Degenerative joint disease of knee Left medial knee pain Recurrent Clostridioides difficile infection (~2020) History of colon polyps Lip lesion Chronic low back pain without sciatica Dyslipidemia Prediabetes Seasonal allergies Surgical History Surgical History History of lumpectomy of left breast (~1961) 1962 History of tonsillectomy (~1961) H/O removal of cyst (~2007) 2007 - left breast H/O: hysterectomy (~1988) 1988 Family History Family History Daughter Breast cancer Sibling Malignant neoplasm of prostate Mother Afib Other Arthritis Social History Social History Smoking status: Former smoker (< 20 pack years, quit over 40 years ago) Tobacco type: cigarettes Additional smoking assessment comments: social smoker 40 years ago Alcohol intake: current Alcohol use details: occasional glass of wine Substance use: never Substance use type: does not use Current Housing: Decline to Answer Concerned About Future Housing: Decline to Answer Difficulty Paying Gas/Electric Bills: Decline to Answer Difficulty Paying for Meds: Decline to Answer Currently Unemployed: Decline to Answer Education: Decline to Answer Difficulty w/ Childcare or Family Care: Decline to Answer Living arrangements: with family Additional living arrangements comments: Occupation/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der identity (if verbalized by the patient): Female Sexual Orientation (if Verbalized by the Patient): Straight or Heterosexual Spiritual care concerns: No Agree to blood products: Yes Anes - Eval Final PreProcedure Day of Procedure 07/09/25 09:12 Patient weight: overweight Heart: regular rate and rhythm Lungs: clear to auscultation Airway: Mallampati scale class II Neurological: alert and oriented Last oral intake: >/= 8 hours ASA classification: II Emergent: no Anesthetic plan: proceed Anesthesia type and monitoring: general GIVS and standard monitoring Results Review: All pre-operative results and documents have been reviewed as part of the pre-operative evaluation. Informed Consent: The patient's anesthetic plan and its attendant risks and benefits were discussed with the patient/family/POA. Questions were solicited and answers provided to the satisfaction of the patient/family/POA.
--- NOTE | 2025-07-09 10:20 | PM.IMHP ---
H&P: HPI History of Present Illness Date/Time: 07/09/25 10:20 Chief Complaint: History of colon polyps Narrative: The patient has a history of colonic polyps, the last colonoscopy was in 2021. Review of Systems Review of Systems: All systems reviewed & are unremarkable except as noted in HPI and below PMFSH Past Medical History Medical History Distal radius fracture, left (~05/12/24) Osteopenia Degenerative joint disease of knee Left medial knee pain Recurrent Clostridioides difficile infection (~2020) History of colon polyps Lip lesion Chronic low back pain without sciatica Dyslipidemia Prediabetes Seasonal allergies Surgical History Surgical History History of lumpectomy of left breast (~1961) 1961 History of tonsillectomy (~1961) H/O removal of cyst (~2007) 2007 - left breast H/O: hysterectomy (~1988) 1988 Family History Family History Daughter Breast cancer Sibling Malignant neoplasm of prostate Mother Afib Other Arthritis Social History Social History Smoking status: Former smoker (< 20 pack years, quit over 40 years ago) Tobacco type: cigarettes Additional smoking assessment comments: social smoker 40 years ago Alcohol intake: current Alcohol use details: occasional glass of wine Substance use: never Substance use type: does not use Current Housing: Decline to Answer Concerned About Future Housing: Decline to Answer Difficulty Paying Gas/Electric Bills: Decline to Answer Difficulty Paying for Meds: Decline to Answer Currently Unemployed: Decline to Answer Education: Decline to Answer Difficulty w/ Childcare or Family Care: Decline to Answer Living arrangements: with family Additional living arrangements comments: Occupation/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der identity (if verbalized by the patient): Female Sexual Orientation (if Verbalized by the Patient): Straight or Heterosexual Spiritual care concerns: No Agree to blood products: Yes Meds Home Medications and Allergies Home Medications ?Medication ?Instructions ?Recorded ?Confirmed ?Type meclizine 25 mg tablet 25 mg PO TID PRN dizziness #30 tabs 06/05/24 07/01/25 Rx calcium carbonate 600 mg PO DAILY 08/11/24 07/09/25 History cholecalciferol (vitamin D3) 25 50 mcg PO DAILY 08/11/24 07/09/25 History mcg (1,000 unit) tablet ibuprofen 200 mg tablet 200 mg PO BID PRN fever or pain 02/10/25 07/01/25 History simvastatin 20 mg tablet 20 mg PO QHS #100 tabs 02/25/25 07/09/25 Rx Allergies Allergy/AdvReac Type Severity Reaction Status Date / Time Penicillins Allergy Unknown Unknown Verified 07/09/25 08:38 clindamycin AdvReac Severe c. diff Verified 07/09/25 08:38 Vital Signs Vital Signs - 24 hr 07/09/25 08:39 Temperature 97 F L Pulse Rate 87 Respiratory Rate 18 Blood Pressure 167/75 H Pulse Oximetry 100 Oxygen Delivery Room Air Exam Const: General: cooperative and healthy appearing Resp: Effort & Inspection: normal respiratory effort and able to speak in complete sentences Auscultation: clear to auscultation bilaterally Cardio: Rate: regular rate Rhythm: regular rhythm GI: Inspection: normal to inspection GI Palp: No No hepatosplenomegaly present Auscultation: normal bowel sounds Rectal Exam: deferred Skin: General skin exam: normal color Psych: Appearance: grossly normal Mental Status: mental status grossly normal Assessment and Plan Assessment and plan (1) History of colon polyps: Code(s): Z86.010 - Personal history of colon polyps Status: Acute Assessment and Plan: The patient is deemed a good candidate for the procedure. Consent signed. Will proceed.
--- NOTE | 2025-07-09 11:05 | S_PTH ---
PATIENT: Precious Navarrete LOC: [facility] Liu#:[id number] AGE/SX: 84/F ROOM: RE07/09/[address]: Martin Polanco MD : 1940 BED: DIS: 07/09/2025 SPEC #: [id number] RECD: 07/09/25 11:43 STATUS: MAITE REQ #: [id number] JADA: 07/09/25 11:[address]: Martin Polanco DEPT: [facility] Surgical RECD BY: Reanna Arnold ENTERED: 07/09/25 11:43 SP TYPE: Surgical OTHR DR: Kiersten Barnes MD Tissues: A - Colon Polypectomy Procedures: Hematoxylin and Eosin Stain Gross and Microscopic Level 4
[2025-07-09 11:07] VITALS: BP 106/49; PULSE 72; RESP 25; O2SAT 100
[2025-07-09 11:17] VITALS: BP 119/60; PULSE 62; RESP 20; O2SAT 100
[2025-07-09 11:27] VITALS: BP 131/58; PULSE 63; RESP 22; O2SAT 100
== END 2025-07-09 11:39 | disposition home or self-care (01) ==
PROVIDERS: PCP Family Medicine; Referring Provider Internal Medicine Gastroenterology; Visit Provider Internal Medicine Gastroenterology
PROC: 0DJD8ZZ Inspection of Lower Intestinal Tract, Via Natural or Artificial Opening Endoscopic (ICD-10-PCS; CPT 45378; principal; 2025-07-09 10:00)
DX: Z12.11 Encounter for screening for malignant neoplasm of colon (principal); D12.2 Benign neoplasm of ascending colon; K63.5 Polyp of colon; K64.8 Other hemorrhoids
CPT/HCPCS: 45385; 88305; J2003; J2704; J7120

== ENCOUNTER 2025-07-28 10:19 | Outpatient (CLI) | payer MEDICARE, SELFPAY ==
--- OUTSIDE RECORDS SUMMARY | 2025-07-28 11:10 | XMS_ITS | Encounter Summary ---
Author Organization [facility] Address [address] [place] [address] Care Team Providers Care Compliance Consultant Name Role Phone Elijah Mckinley MD Primary Care Provider [phone] Encounter Details Date Type Department Care Team (Late st Contact Info) Description 07/10/2025 Telephone [facility] [address] [place], [place] [id number] Merlyn Moya Social History Tobacco Use Types Packs/Day Years Used Date Smoking Tobacco: Never Assessed Comments Unknown Sex and Gender Information Value Date Recorded Sex Assigned at Not on file Legal Sex Female 9:13 AM CDT Gender Identity Not on file Sexual Orientation Not on file documented as of this encounter Miscellaneous Notes * Telephone Encounter - Merlyn Moya - 07/20/2025 12:02 PM CST Pathology requested from referring office scheduling pending. URCE MANAGEMENT SPECIALIST * Telephone Encounter - Merlyn Moya - 07/10/2025 12:06 PM CST Colonoscopy+EMR referral for Dr. Reyna pathology pending. Scheduling pending URCE MANAGEMENT SPECIALIST documented in this encounter Plan of Treatment Not on file documented as of this encounter Visit Diagnoses Not on filedocumented in this encounter Care Teams Compliance Consultant Relationship Specialty Start Date End Date Elijah Mckinley MD [address] [place] [address] PCP - General 12/21/21 documented as of this encounter
--- OUTSIDE RECORDS SUMMARY | 2025-07-28 11:10 | XMS_ITS | Clinical Summary ---
Author Organization [facility] Address [address] [place] [address] Care Team Providers Care Government Affairs Researcher Name Role Phone Elijah Mckinley MD Primary Care Provider [phone] Source Comments [facility] [employer],non-owned Affiliates and Associated Physician Practices is amultiple site organization consisting of ambulatory clinics and hospital sitesin [place], [place], [place] and [place]. This disclosure is being madepursuant to the Care Everywhere program and may not contain all information available regarding this patient. Last updated 18.[facility] [employer] Encounters Date Type Department Care Team Description 07/10/2025 Telephone [facility] [address] [place] [address] Merlyn Moya from Last 3 Months Social History Tobacco Use Types Packs/Day Years Used Date Smoking Tobacco: Never Assessed Comments Unknown Sex and Gender Information Value Date Recorded Sex Assigned at Not on file Legal Sex Female 9:13 AM CDT Gender Identity Not on file Sexual Orientation Not on file Plan of Treatment Health Maintenance Due Date Last Done Comments BONE DENSITY TESTING 1940 DTAP/TDAP/TD VACCINES (1 - Tdap) 11/17/1959 PNEUMOCOCCAL VACCINE 50+ (1 of 1 - PCV) 1990 ZOSTER VACCINE (1 of 2) 1990 Respiratory Syncytial Virus (RSV) Vaccine Pt: or over 60 yrs (1 - 1-dose 75+ series) 11/17/2015 DEPRESSION SCREENING 08/27/2024 MEDICARE AWV CALENDAR YEAR 2024 COVID-19 VACCINE (1 - 2024-2 6 season) 2025 INFLUENZA VACCINE (#1) 2025 HEPATITIS B VACCINE Aged Out No longe r eligible based on patient's age to complete this topic HIB VACCINE Aged Out No longer eligi ble based on patient's age to complete this topic HPV VACCINE Aged Out No longer eligi ble based on patient's age to complete this topic MENINGOCOCCAL (Group B) VACC INE SHARED DECISION-MAKING Aged Out No longer eligibl e based on patient's age to complete this topic MENINGOCOCCAL GROUPS A/C/Y/W VACCINE Aged Out No longer eligible b ased on patient's age to complete this topic Insurance [facility] MANAGED MEDICARE ADV [facility] MANAGED MEDICARE ADV SELF PAY NO INSURANCE Member Subscriber Plan / Payer (Ef fective for All Dates) Name:Precious Navarrete Member ID:Not on file Relation to Subscriber:Not on file Name:PRECIOUS NAVARRETE Subscriber ID:Not on file (Home) Address: [place] [address] Payer ID:Not on file Group ID:Not on file Type:Self Pay Address: [place], [place] Care Teams Government Affairs Researcher Relationship Specialty Start Date End Date Elijah Mckinley MD [address] [address] PCP - General 12/21/21
[2025-07-28 12:58] LABS: Hematocrit 43.0 % (37.0-47.0); Hemoglobin 13.9 g/dL (12.0-15.0); Immature Granulocyte Percent A 0.4 % (0-0.5); Lymphocytes Absolute Auto 0.68 K/mm3 (0.9-3.2); Mean Corpuscular HGB Conc 32.3 g/dl (32-36); Mean Corpuscular Hemoglobin 29.5 pg (26-34); Mean Corpuscular Volume 91.3 fl (80-100); Nucleated Red Blood Cells Absolute Auto 0.000 K/mm3 (0.0-0.012); Nucleated Red Blood Cells Perc 0.0 % (0.0-0.2); Platelet Count Result 229 k/mm3 (150-375); Red Blood Count 4.71 M/mm3 (4.2-5.4); White Blood Count 7.7 K/mm3 (4.5-10.0)
[2025-07-28 13:03] LABS: Alanine Aminotransferase 22 U/L (6-35); Albumin Level 4.7 g/dL (3.5-5.1); Alkaline Phosphatase 64 U/L (38-126); Anion Gap 7 mmol/L (4-12); Aspartate Amino Transferase 38 U/L (14-36); Bilirubin,Total 0.6 mg/dL (0.2-1.3); Blood Urea Nitrogen 18 mg/dL (7-17); Calcium 9.9 mg/dL (8.4-10.2); Carbon Dioxide 26 mmol/L (22-30); Chloride 104 mmol/L (98-107); Cholesterol 172 mg/dL (0-200); Estimated Glomerular Filt Rate 53; Glucose 131 mg/dL (65-110); HDL Direct 54 mg/dL; Magnesium 2.1 mg/dL (1.6-2.3); Potassium 4.3 mmol/L (3.4-5.0); Sodium 137 mmol/L (137-145); Total Protein 8.4 g/dL (6.3-8.2); Triglycerides 146 mg/dL (<150)
[2025-07-28 13:47] LABS: Thyroid Stimulating Hormone Reflex 1.370 uIU/mL (0.465-4.68)
[2025-07-28 13:49] LABS: Hemoglobin A1C 6.3 % (<5.7)
[2025-07-28 13:57] LABS: Vitamin B12 241.0 pg/mL (239-931)
== END 2025-07-28 10:20 | disposition home or self-care (01) ==
PROVIDERS: PCP Family Medicine; Visit Provider Nurse Practitioner Family
DX: E78.5 Hyperlipidemia, unspecified (principal); R19.7 Diarrhea, unspecified; E55.9 Vitamin D deficiency, unspecified; R73.03 Prediabetes
CPT/HCPCS: 36415; 80053; 80061; 82306; 82607; 83036; 83735; 84443; 85025

== ENCOUNTER 2025-07-29 10:26 | Outpatient (CLI) | payer MEDICARE, SELFPAY ==
[2025-07-29 11:35] LABS: Toxigenic C. Diff NEGATIVE (NEGATIVE)
--- OUTSIDE RECORDS SUMMARY | 2025-07-29 11:49 | XMS_ITS | Encounter Summary ---
Author Organization [facility] Address [address] [place] [address] Care Team Providers Care Laundry Superintendent Name Role Phone Elijah Mckinley MD Primary Care Provider [phone] Encounter Details Date Type Department Care Team (Late st Contact Info) Description 07/10/2025 Telephone [facility] [phone] [place], [place] [id number] Merlyn Moya Social History Tobacco Use Types [...] Pathology requested from referring office scheduling pending. LE PUMPER * Telephone Encounter - Merlyn Moya - 07/10/2025 12:06 PM CST Colonoscopy+EMR referral for Dr. Reyna pathology pending. Scheduling pending LE PUMPER documented in this encounter Plan of Treatment Not on file documented as of this encounter Visit Diagnoses Not on filedocumented in this encounter Care Teams Laundry Superintendent Relationship Specialty Start Date End Date Elijah Mckinley MD [address] [place] [address] PCP - General 12/21/21 documented as of this encounter
--- OUTSIDE RECORDS SUMMARY | 2025-07-29 11:50 | XMS_ITS | Clinical Summary ---
Author Organization [facility] Address [address] [place] [address] Care Team Providers Care Cellar Packer Name Role Phone Elijah Mckinley MD Primary Care Provider [phone] Source Comments [facility] [employer],non-owned Affiliates and Associated Physician Practices is amultiple site organization consisting of ambulatory clinics and hospital sitesin [place], [place], [place] and [place]. This disclosure is being madepursuant to the Care Everywhere program and may not contain all information available regarding this patient. Last updated 18.[facility] [employer] Encounters Date Type Department Care Team Description 07/10/2025 Telephone [facility] [phone] [place] [address] Merlyn Moya from Last 3 [...] patient's age to complete this topic Insurance [facility] MANAGED MEDICARE ADV [facility] MANAGED MEDICARE ADV SELF PAY NO INSURANCE Member Subscriber Plan / Payer (Ef fective for All Dates) Name:Precious Navarrete Member ID:Not on file Relation to Subscriber:Not on file Name:PRECIOUS NAVARRETE Subscriber ID:Not on file (Home) Address: [place] [address] Payer ID:Not on file Group ID:Not on file Type:Self Pay Address: [place], [place] Care Teams Cellar Packer Relationship Specialty Start Date End Date Elijah Mckinley MD [address] [place] [place] [address] PCP - General 12/21/21
== END 2025-07-29 10:27 | disposition home or self-care (01) ==
PROVIDERS: PCP Family Medicine; Visit Provider Nurse Practitioner Family
DX: R19.7 Diarrhea, unspecified (principal)
CPT/HCPCS: 87045; 87046; 87427; 87493